=== PATIENT | female | born 1935 | race Hispanic/Latino ===

== ENCOUNTER → 2018-05-05 | Outpatient (CLI) | payer MEDICARE, BC ==
[~2018-05-05] MED LIST: BACTRIM DS TAB1 EACH PO; CLINDAMYCIN HC150 MG PO; COLACE100 MG PO; LEVOTHYROXINE PO; MACRODANTIN100 MG PO; PANTOPRAZOLE SO40 MG PO; TYLENOL WITH C1 EACH PO
== END ==
LOC: MAMMO 11:19
PROVIDERS: ATTEND Family Medicine
DX: Z12.31 Encounter for screening mammogram for malignant neoplasm of breast (principal)
CPT/HCPCS: 77067